=== PATIENT | male | born 1965 | race Caucasian/White ===

== ENCOUNTER → 2020-10-06 | Outpatient (CLI) | payer BC ==
[~2020-10-06] MED LIST: AMLO5TAB2 GT; ENAL10TA PO; MELO-195 PO
== END ==
LOC: CARD 14:00
PROVIDERS: ATTEND Internal Medicine Cardiovascular Disease
DX: I51.7 Cardiomegaly (principal)
CPT/HCPCS: 93306

== ENCOUNTER 2020-11-24 05:37 | Outpatient (CLI) | payer BC ==
[~2020-11-24] VITALS: Ht 175.3 cm; Wt 88.4 kg
[2020-11-24] MEDS ORDERED: AMLO-250 PO (09:37)
== END 2020-11-24 10:10 | disposition home or self-care (01) ==
LOC: PREOP 05:37
PROVIDERS: ATTEND Surgery
DX: Z01.818 Encounter for other preprocedural examination (principal)

== ENCOUNTER 2020-12-01 08:29 | Day surgery (SDC) | payer BC ==
[~2020-12-01] VITALS: Ht 175.3 cm; Wt 88.4 kg
[2020-12-01] VITALS (9 sets, daily range): BP systolic 105–128; BP diastolic 57–68
--- NOTE | 2020-12-01 06:20 | HISTORY AND PHYSICAL ---
DATE OF SERVICE: PROCEDURE DATE: 12/01/2020 ATTENDING PRIMARY CARE PHYSICIAN: Dr. Amandeep Malave HISTORY OF PRESENT ILLNESS: The patient is a 55-year-old male who is known to us. He was seen in 09/2016 for an umbilical hernia; however, this was asymptomatic at that time. He reports that over the past month, he has noticed that this has become larger in size and started to cause him some more discomfort. He reports that he has also noticed some bulging just superior to the umbilicus. He also reports that he is in need of a screening colonoscopy. He reports that he does have a family history of colon cancer with his father having the disease and his last colonoscopy was 5 years ago, which he reports was normal. Since that time, he denies any diarrhea or constipation as well as no red blood in his stool. PAST MEDICAL HISTORY: Hypertension, rheumatoid arthritis. PAST SURGICAL HISTORY: Left ACL repair in 1997, open appendectomy in 1995, left carpal tunnel release, 2016. ALLERGIES: No known drug allergies. MEDICATIONS: Amlodipine 5 mg daily, enalapril 10 mg daily. SOCIAL HISTORY: Negative for tobacco smoke, social for alcohol. FAMILY HISTORY: Father, diabetes, colon cancer, hypertension, stroke, myocardial infarction. VITAL SIGNS: Blood pressure is 129/86. Current weight is 194.9 pounds at 5 feet 9 inches. REVIEW OF SYSTEMS: This is a well-nourished male in no acute distress. He is not experiencing any shortness of breath or difficulty breathing. No chest pain, palpitations or diaphoresis. No nausea or vomiting. He does report some abdominal pain at the umbilical region. No diarrhea or constipation. No red blood per rectum. No dark tarry stools. No fever or chills. No recent inadvertent weight loss. All other review of systems negative. PHYSICAL EXAMINATION: CHEST: Clear. Good breath sounds bilaterally. HEART: Regular, no murmurs. EXTREMITIES: No lower extremity edema. Negative Homans sign. HEENT: No scleral icterus. NECK: No cervical lymphadenopathy. ABDOMEN: Soft, nondistended. There does appear to be a ventral abdominal hernia just superior to the umbilicus as well as an umbilical hernia and these are reducible; however, tender to palpation. No palpable masses. No organomegaly. SKIN: Warm, dry and pink. NEUROLOGIC: Awake, alert and oriented x3. ASSESSMENT AND PLAN: A 55-year-old male with a family history of colon cancer, who is in need of a screening colonoscopy, who also has an umbilical hernia as well as what appears to be a ventral abdominal hernia. At this time, we will proceed with scheduling him for a screening colonoscopy and umbilical and ventral abdominal incisional hernia repair with mesh. The risks and benefits of the procedure as well as the procedure and home care instructions were explained to the patient. The patient verbalized understanding of instructions and agrees to proceed as planned. Job ID: [id number] DocumentID: [id number] Dictated Date: 11/29/2020 14:44:13 Workgroup Leader Date: 11/29/2020 15:03:08 Dictated By: ANNA DACOSTA APRN
[~2020-12-01 08:29] MED LIST changes: +AMLO-250 PO
--- NOTE | 2020-12-01 08:51 | Progress Note-Pre Operative ---
Pre-Operative Progress Note H&P Reviewed The H&P was reviewed, patient examined and no changes noted. Date Seen by Provider: Dec 01, 2020 Time Seen by Provider: 08:50 Date H&P Reviewed: Dec 01, 2020 Time H&P Reviewed: 08:45 Pre-Operative Diagnosis: Umbilical and ventral abdominal hernia, Screening colonoscopy ANNA DACOSTA APRN Dec 01, 2020 08:50
[2020-12-01] MEDS ORDERED: HYDR-3817 PO (08:52)
--- NOTE | 2020-12-01 08:54 | Discharge Inst-Surgical ---
D/C Lap Instructions-KIDO Reconcile Patient Problems Problems Reviewed?: Yes New, Converted, or Re-Newed RX: RX on Chart Follow Up Appt in 2 weeks Activity as tolerated No driving for 24 hours No driving while on pain medications Incentive Spirometry use every 2 hours while awake Regular Diet High Fiber Diet 25g or more per day Drink 64 fluid oz or more of fluids per day. Symptoms to Report: Fever over 101 degree F, Nausea/Vomiting Infection Signs and Symptoms to report: Increased redness, Foul odor of wound, Increased drainage Bathing instructions: May shower Operative Area Clean/Dry; Keep incision clean/dry ANNA DACOSTA POLICE CADET Dec 01, 2020 08:54
[2020-12-01] MEDS ORDERED: ONDANSETRON 4 MG/2 ML (SDV) Z0FRAN IVP PRN (09:00)
[2020-12-01] MEDS ORDERED: ceFAZolin 2 GM IV Premixed 50 ML IV ONE (09:00)
[2020-12-01] MEDS ORDERED: HYDROcodone/APAP 5 MG/325 MG (LORTAB) TAB PO ONE (09:00)
[2020-12-01] MEDS ORDERED: ACETAMINOPHEN 325 MG TABLET PO PRN (09:00)
[2020-12-01] MEDS ORDERED: morphine INJ 10 MG/ML 1ML (SYR OR VIAL) IVP PRN (09:00)
[2020-12-01] MEDS: LACTATED RINGERS 1,000 ML IV PRN ×3 (09:14→11:35)
[2020-12-01] MEDS ORDERED: LIDOCAINE PF 2% 5 ML (XYLOCAINE) VIAL ONE (09:34)
[2020-12-01] MEDS ORDERED: MIDAZOLAM 2 MG/2 ML (VERSED) VIAL ONE (09:34)
[2020-12-01] MEDS ORDERED: ONDANSETRON 4 MG/2 ML (SDV) Z0FRAN ONE ×2 (09:34→12:07)
[2020-12-01] MEDS ORDERED: fentaNYL INJ 100 MCG/2 ML AMP ONE (09:34)
[2020-12-01] MEDS ORDERED: ROCURONIUM 10 MG/ML 5 ML SYRINGE IV ONE (09:36)
[2020-12-01] MEDS ORDERED: LIDOCAINE/EPI 1%-1:200,000 (XYLOCAINE) 30 ML VIAL ONE (09:47)
[2020-12-01] MEDS ORDERED: GLYCOPYRROLATE 0.2 MG/ML (ROBINUL) 2 ML VIAL ONE (11:18)
[2020-12-01] MEDS ORDERED: proPOfol 200 MG/20 ML (DIPRIVAN) VIAL IV ONE (11:18)
[2020-12-01] MEDS ORDERED: NEOSTIGMINE 3 MG/3 ML VIAL ONE (11:18)
--- NOTE | 2020-12-01 11:19 | Progress Note-Post Operative ---
Post-Operative Progess Note Surgeon (s)/Construction Carpenter (s) Surgeon Dr. Cesario Wood M.D. Construction Carpenter: Dewayne Dacosta TREE DRILLER Pre-Operative Diagnosis Umbilical and ventral abdominal hernia, Screening colonoscopy Post-Operative Diagnosis Umbilical hernia, ventral abdominal hernia, mild chronic stage II internal and external hemorrhoids, moderate sigmoid diverticulosis Procedure & Operative Findings Date of Procedure 12/01/20 Procedure Performed/Findings Open umbilical hernia with mesh, primary repair of ventral abdominal hernia, and colonoscopy Anesthesia Type GET Estimated Blood Loss Estimated blood loss (mL): Minimal Specimens/Packing Specimens Removed 1) Hernia sac DEWAYNE DACOSTA TREE DRILLER Dec 01, 2020 11:19
[2020-12-01] MEDS ORDERED: SEVOFLURANE (ULTANE) 15 ML INHAL SOLN ONE (11:34)
[2020-12-01] MEDS ORDERED: HYDROcodone/APAP 5 MG/325 MG (LORTAB) TAB ONE ×2 (12:30→12:34)
--- NOTE | 2020-12-01 13:13 | Anesthesia-General Post-Op ---
General Patient Condition Mental Status/LOC: Same as Preop Cardiovascular: Satisfactory Nausea/Vomiting: Absent Respiratory: Satisfactory Pain: Controlled Complications: Absent Post Op Complications Complications None Follow Up Care/Instructions Patient Instructions None needed. Anesthesia/Patient Condition Patient Condition Patient is doing well, no complaints, stable vital signs, no apparent adverse anesthesia problems. No complications reported per nursing. JEWEL JOHNSON CRNA Dec 01, 2020 13:13
--- NOTE | 2020-12-01 15:37 | OPERATIVE REPORT ---
DATE OF SERVICE: 12/01/2020 ATTENDING PRIMARY CARE PHYSICIAN: Amandeep Malave MD. PREOPERATIVE DIAGNOSES: Umbilical hernia, ventral abdominal hernia and screening colonoscopy. POSTOPERATIVE DIAGNOSES: Umbilical hernia, ventral abdominal hernia 2 cm superior to the umbilical hernia, chronic stage II external and internal hemorrhoids, and moderate sigmoid diverticulosis. PROCEDURES PERFORMED: Open umbilical hernia repair with mesh and primary repair of ventral abdominal hernia, and colonoscopy. SURGEON: Marline Wood MD. RIPSHEAR OPERATOR: Dewayne Barrett APRN. ANESTHESIA: General endotracheal. ESTIMATED BLOOD LOSS: Minimal. FINDINGS: Umbilical hernia, ventral abdominal hernia 2 cm superior to the umbilical hernia, chronic stage II external and internal hemorrhoids, and moderate sigmoid diverticulosis. DISPOSITION: The patient tolerated the procedure well. INDICATIONS FOR PROCEDURE: The patient is a 55-year-old male known to us. He has a known history of an umbilical hernia; however, was asymptomatic at that time. He states that, over time, this has become larger and has caused discomfort and pain. He was examined in the office and found to have a reducible umbilical hernia, which was tender to palpation; however, there was also another outpouching superior to this consistent with a ventral abdominal hernia. He is also in need of a screening colonoscopy. He does have a family history of colon cancer with his father having the disease. DESCRIPTION OF PROCEDURE: The patient was brought to the operating room and laid supine on the table. After adequate IV pain and sedative medications and general endotracheal intubation, the abdomen was prepped and draped in a standard surgical fashion. A 0.5% Marcaine with epinephrine was used to anesthetize the overlying skin in the supraumbilical rim and a crescent shaped skin incision was made using a 15 blade. The subcutaneous tissue was then dissected using electrocautery. The umbilical hernia was identified and we continued to dissect around the fascial base with a defect approximately 1.5 cm in size. The hernia sac was then opened using a cautery and only a preperitoneal fat within the hernia sac, which was fully excised using electrocautery with visualization of good hemostasis. We then palpated superiorly, where a small ventral hernia was identified. This was then completely dissected out in a similar fashion. The hernia sac was opened using electrocautery with only preperitoneal fat within the hernia sac. This was a small defect approximately 1 cm in size. We then proceeded with repair of the umbilical hernia using a 6.4 round coated polypropylene mesh and this was sutured in a concentric manner using transfascial sutures using 0 Prolene interrupted sutures. The ventral hernia, which was small, was closed primarily in a transverse manner using multiple interrupted 0 Prolene sutures. Good hemostasis was observed. The subcutaneous tissue was then reapproximated using 3-0 Vicryl interrupted sutures. Skin was closed using a 4-0 Monocryl running subcuticular suture. The umbilicus as well as ventral hernia region was then covered with tonsil sponges followed by 4 x 4 gauze followed by a large Op-Site. Abdominal binder was then placed. The patient was then placed in frog legged position and a digital rectal examination was performed. Chronic stage II external and internal hemorrhoids were identified, which were not actively edematous nor inflamed and no bleeding. Normal sphincter tone was felt and there were no palpable masses. Prostate gland was palpable and appeared normal. The endoscope was then intubated and the anus and rectum gently insufflated. The endoscope was then advanced through the valves of Alvarado of the rectum with no polyps or any neoplasms identified. Through the sigmoid colon, a moderate sigmoid diverticulosis was identified. There were no mucosal inflammatory changes to indicate any active diverticulitis. The endoscope was then advanced and remainder of the descending, transverse and ascending colon to the cecum. These segments were normal. There were no polyps or any neoplasms identified. The endoscope was then slowly withdrawn while taking a second look and suctioning of residual air with no additional findings. The patient tolerated the procedure well. We will start IV normal pain medication as well as a clear liquid diet. Once he is tolerating clears, has good pain control with oral pain medications, and is ambulating well, we will discharge him home. He will be instructed to do no heavy lifting or exertion, especially for the first two weeks and slowly incorporate more activity. We will also want him to wear an abdominal binder for the next two weeks. We will also recommend a high-fiber diet with fiber supplementation, which should equal or exceed 30 grams daily as well as significant amounts of water to promote soft stools on a daily basis. He does not need another colonoscopy for another five years. Job ID: [id number] DocumentID: [id number] Dictated Date: 12/01/2020 11:32:31 Fingerprint Clerk Date: 12/01/2020 15:36:56 Dictated By: MARLINE WOOD MD
== END 2020-12-01 13:15 | disposition home or self-care (01) ==
LOC: SDC 08:29
PROVIDERS: ATTEND Surgery
DX: Z12.11 Encounter for screening for malignant neoplasm of colon (principal); K42.9 Umbilical hernia without obstruction or gangrene; K43.9 Ventral hernia without obstruction or gangrene; K64.1 Second degree hemorrhoids; K57.30 Diverticulosis of large intestine without perforation or abscess without bleeding; I10 Essential (primary) hypertension; K21.9 Gastro-esophageal reflux disease without esophagitis; Z98.890 Other specified postprocedural states; Z79.899 Other long term (current) drug therapy; Z90.89 Acquired absence of other organs; Z80.0 Family history of malignant neoplasm of digestive organs
CPT/HCPCS: 45378; 49560; 49585; 87081; C1781

== ENCOUNTER 2021-01-23 16:16 | Observation (INO) | payer BC ==
[~2021-01-23] VITALS: Ht 172.7 cm; Wt 91.0 kg
[~2021-01-23 16:16] MED LIST changes: +HYDR-3817 PO
[2021-01-23] MEDS ORDERED: HYDROmorphone 2 MG/ML VIAL (DILAUDID) IV ONE (16:30)
--- NOTE | 2021-01-23 16:34 | ED Lower Extremity ---
General Stated Complaint: TREE TRUNK FELL/HIT L ANKLE Source: patient Exam Limitations: no limitations (YULI NELSON) History of Present Illness Date Seen by Provider: Jan 23, 2021 Time Seen by Provider: 16:31 Initial Comments Patient is a 55-year-old male who presents ED with left ankle pain. Patient states 30 minutes ago he was cutting down a tree when the trunk kicked back hitting his left ankle. Obvious bone deformity noted on arrival. +2 dorsalis pedis. Limited range of motion of the digits. Patient in significant pain on arrival. Last time he ate was apple this morning. Denies hitting his head, back, chest or abdomen. (YULI NELSON) Allergies and Home Medications Allergies Coded Allergies: No Known Drug Allergies (Unverified , 12/15/12) Patient Home Medication List Home Medication List Reviewed: Yes (YULI NELSON) Amlodipine Besylate (Amlodipine Besylate) 5 Mg Tablet, 5 MG PO DAILY, (Reported) Entered as Reported by: CHARLY ABDULLAHI on 11/24/20 0937 Last Action: Reviewed Enalapril Maleate (Enalapril Maleate) 10 Mg Tablet, 10 MG PO DAILY, (Reported) Entered as Reported by: SYMONE AJ on 01/24/21 1345 Last Action: Reviewed Discontinued Medications Enalapril Maleate (Enalapril Maleate) 10 Mg Tablet, 10 MG PO DAILY, (Reported) Discontinued Reason: No Longer Taking Entered as Reported by: TAMMY NICHOLE on 12/15/12 0841 Last Action: Discontinued Hydrocodone/Acetaminophen (Hydrocodone-Acetamin 7.5-325) 1 Each Tablet, 1 EACH PO Q4H PRN for PAIN-BREAKTHROUGH Discontinued Reason: No Longer Taking Prescribed by: ANNA DACOSTA on 12/01/20 0852 Last Action: Discontinued Review of Systems Constitutional: No chills, No diaphoresis, No dizziness, No fever EENTM: No hearing loss, No ear pain, No blurred vision, No eye pain Respiratory: No cough, No dyspnea on exertion, No hemoptysis Cardiovascular: No edema Gastrointestinal: No abdominal pain, No constipation, No diarrhea Musculoskeletal: No back pain; joint pain, joint swelling, other (deformity of left ankle ) Skin: No change in color, No change in hair/nails Psychiatric/Neurological: Denies Anxiety, Denies Depressed (YULI NELSON) All Other Systems Reviewed Negative Unless Noted: Yes (YULI NELSON) Past Assibbj-Bplxah-Usgpjz Hx Immunizations Up To Date First/Initial COVID19 Vaccinat: MARCH 2020 Second COVID19 Vaccination Aleksey: APRIL 2020 (YULI NELSON) Seasonal Allergies Seasonal Allergies: No (YULI NELSON) Past Medical History Surgeries: Yes Respiratory: No Cardiac: No Neurological: No Genitourinary: No Gastrointestinal: No Musculoskeletal: No Endocrine: No HEENT: No Cancer: No Psychosocial: Yes Sleep Difficulties Integumentary: No Blood Disorders: No (YULI NELSON) Physical Exam Vital Signs Vital Signs - First Documented 01/23/21 01/23/21 16:21 17:04 Pulse 78 Resp 18 B/P (MAP) 122/77 (92) Pulse Ox 98 O2 Delivery Room Air O2 Flow Rate 2.00 (SAM MERLOS MD) Vital Signs Capillary Refill : (YULI NELSON) Height, Weight, BMI Height: '" Weight: 180lbs. oz. 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 Re-examination Time: 17:24 (YULI NELSON) Splinting and Joint Reduction : Location: left ankle Pre-Proc Neuro Vasc Exam: normal Post-Proc Neuro Vasc Exam: normal Reduction Attempts: 1 Pre-Procedure NV Exam: Yes post joint reduction film: joint reduced Progress Improvement of alignment of the left ankle. Fractures noted. Maikel wrap: Yes Hand-Made Type: orthoglass Splint Application: Long Leg (YULI NELSON) Progress/Results/Core Measures Results/Orders Lab Results Laboratory Tests Test 01/23/21 16:25 Range/Units White Blood Count 11.7 H 4.3-11.0 10^3/uL Red Blood Count 5.02 4.30-5.52 10^6/uL Hemoglobin 15.1 13.3-17.7 g/dL Hematocrit 44 40-54 % Mean Corpuscular Volume 88 80-99 fL Mean Corpuscular Hemoglobin 30 25-34 pg Mean Corpuscular Hemoglobin Concent 34 32-36 g/dL Red Cell Distribution Width 13.0 10.0-14.5 % Platelet Count 277 130-400 10^3/uL Mean Platelet Volume 9.9 9.0-12.2 fL Immature Granulocyte % (Auto) 0 % Neutrophils (%) (Auto) 74 42-75 % Lymphocytes (%) (Auto) 14 12-44 % Monocytes (%) (Auto) 11 0-12 % Eosinophils (%) (Auto) 1 0-10 % Basophils (%) (Auto) 0 0-10 % Neutrophils # (Auto) 8.6 H 1.8-7.8 10^3/uL Lymphocytes # (Auto) 1.6 1.0-4.0 10^3/uL Monocytes # (Auto) 1.3 H 0.0-1.0 10^3/uL Eosinophils # (Auto) 0.1 0.0-0.3 10^3/uL Basophils # (Auto) 0.1 0.0-0.1 10^3/uL Immature Granulocyte # (Auto) 0.1 0.0-0.1 10^3/uL Sodium Level 139 135-145 MMOL/L Potassium Level 3.8 3.6-5.0 MMOL/L Chloride Level 104 98-107 MMOL/L Carbon Dioxide Level 23 21-32 MMOL/L Anion Gap 12 5-14 MMOL/L Blood Urea Nitrogen 17 7-18 MG/DL Creatinine 1.08 0.60-1.30 MG/DL Estimat Glomerular Filtration Rate 71 BUN/Creatinine Ratio 16 Glucose Level 95 70-105 MG/DL Calcium Level 9.8 8.5-10.1 MG/DL (SAM MERLOS MD) My Orders Orders - SAM MERLOS MD Propofol Injection (Diprivan Injection) (01/23/21 17:15) Ankle, Left, 2 Views (01/23/21 17:24) (SAM MERLOS MD) Vital Signs/I&O 01/23/21 01/23/21 01/23/21 01/23/21 16:21 17:00 17:04 17:17 Pulse 78 75 Resp 18 18 B/P (MAP) 122/77 (92) 109/72 Pulse Ox 98 94 O2 Delivery Room Air Room Air Nasal Cannula Nasal Cannula O2 Flow Rate 2.00 2.00 01/23/21 01/23/21 01/23/21 17:21 17:39 18:12 Pulse 81 84 59 59 Resp 35 18 18 16 B/P (MAP) 95/75 111/72 121/76 Pulse Ox 92 99 98 O2 Delivery Nasal Cannula Nasal Cannula Room Air O2 Flow Rate 2.00 (SAM MERLOS MD) Progress Progress Note : Time: 17:00 Progress Note I was present for the procedural sedation and closed reduction of the left fracture disclocation of the left ankle. Mallampati 2-3. Initial VSS. I provided sedation and assisted with monitoring the patient's respiratory status. Total length of sedation time about 15min. 160mg total of propofol used. Patient did drop O2 sats to to about 88-89%, 2-5L O2 supplemented. Respiratory effort remained good. Patient tolerated the procedure well. (SAM MERLOS MD) Departure Communication (Admissions) Time/Spoke to Admitting Phy: 18:23 Successful reduction of left ankle here in the ED. Patient tolerated procedure well. Improvement of alignment. Neurovascular intact. Patient was placed in a splint posterior short leg with reverse sugar tong. Patient was discussed with orthopedic Dr. Mosquera who recommends surgery in the morning and will accept admit at this time. Patient denies of any other injuries. Patient was discussed with Dr. Mosquera who accepts admit for surgery in the morning at 8:30 AM. Patient will be n.p.o. after midnight. IV morphine as needed. Lab work, EKG and chest x-ray was ordered. Patient is a healthy individual. Patient left leg neurovascular intact post splint. No evidence of compartment syndrome. Pain controlled. (YULI NELSON) Impression Primary Impression: Ankle fracture Disposition: ADMITTED INPATIENT Condition: Stable Admissions Decision to Admit Reason: Admit from ER (General) Decision to Admit/Date: Jan 23, 2021 Time/Decision to Admit Time: 18:22 (YULI NELSON) Departure-Patient Inst. Referrals: FILOMENA AMAYA DO (PCP/Family) Primary Care Physician YULI NELSON Jan 23, 2021 16:34 SAM MERLOS MD Jan 24, 2021 06:23
--- NOTE | 2021-01-23 17:04 | Diagnostic Imaging Report ---
EXAMINATION: Left ankle radiographs, 2 views. COMPARISON: None. HISTORY: 55-year-old male, left ankle pain. Injury. FINDINGS: There is a displaced fracture extending through the base of the medial malleolus. The fracture fragment is displaced laterally by approximately 1.3 cm. There is a comminuted displaced distal fibular fracture above the level of the tibial plafond. The distal tibia is medially subluxed/dislocated relative to the talus. There is abnormal angulation at the tibiotalar joint. IMPRESSION: 1. Displaced fracture through the base of the medial malleolus. 2. Comminuted displaced distal fibular fracture above the level of the tibial plafond. 3. The distal tibia is medially subluxed/dislocated relative to the talus with abnormal angulation of the tibiotalar joint. Dictated by: Dictated on workstation # [id number]
[2021-01-23] MEDS ORDERED: proPOfol 200 MG/20 ML (DIPRIVAN) VIAL IV ONE ×2 (17:09→17:15)
[2021-01-23] MEDS ORDERED: NS IV 1000 ML 1,000 ML ONE (17:15)
--- NOTE | 2021-01-23 17:47 | Diagnostic Imaging Report ---
INDICATION: Left ankle injury. AP and lateral views of the left ankle obtained at 5:32 p.m. and compared to same day at 4:53 p.m. FINDINGS: There is improved alignment compared to the prior study. Fracture of the medial malleolus is again noted with improved alignment compared to the prior study. Distal fibular oblique fracture is also improved in alignment compared to the prior study. The dislocation of the ankle joint seen previously appears to have been reduced. IMPRESSION: Improved alignment of distal tibial and fibular fractures with reduction of previous dislocation. Dictated by: Dictated on workstation # [id number]
[2021-01-23 18:27] LABS: POTASSIUM 3.8 MMOL/L (3.6-5.0)
[2021-01-23 18:28] LABS: CALCIUM 9.8 MG/DL (8.5-10.1)
[2021-01-23 18:32] LABS: CREATININE SERUM 1.08 MG/DL (0.60-1.30)
[2021-01-23 18:36] LABS: BASOPHILS # (AUTO) 0.1 10^3/uL (0.0-0.1); BASOPHILS % (AUTO) 0 % (0-10); EOSINOPHILS # (AUTO) 0.1 10^3/uL (0.0-0.3); EOSINOPHILS % (AUTO) 1 % (0-10); HEMATOCRIT 44 % (40-54); HEMOGLOBIN 15.1 g/dL (13.3-17.7); LYMPHOCYTES # (AUTO) 1.6 10^3/uL (1.0-4.0); LYMPHOCYTES % (AUTO) 14 % (12-44); MEAN CORPUSCULAR HEMOGLOBIN 30 pg (25-34); MEAN CORPUSCULAR HGB CONC 34 g/dL (32-36); MEAN CORPUSCULAR VOLUME 88 fL (80-99); MEAN PLATELET VOLUME 9.9 fL (9.0-12.2); MONOCYTES # (AUTO) 1.3 10^3/uL (0.0-1.0); MONOCYTES % (AUTO) 11 % (0-12); NEUTROPHILS # (AUTO) 8.6 10^3/uL (1.8-7.8); NEUTROPHILS % (AUTO) 74 % (42-75); PLATELET COUNT 277 10^3/uL (130-400); WHITE BLOOD COUNT 11.7 10^3/uL (4.3-11.0)
--- NOTE | 2021-01-23 18:39 | Diagnostic Imaging Report ---
INDICATION: 55-year-old male presents with cough, history of left broken ankle from fall. COMPARISONS: None FINDINGS: PA and lateral films of the chest show the cardiac contour to be normal. There is slight prominence of the central lung ward. There is some minimal basilar atelectatic infiltrates but no consolidations. There is no effusion or pneumothorax. Soft tissues and bony thorax are normal. IMPRESSION: Some central reactive airway changes such as mild bronchitis with some minimal perihilar and infrahilar infiltrates probably atelectatic. No significant consolidations seen. Nodules projected over both lower chest are felt to be nipples. If warranted, nipple markers can be placed with reimaging. The thoracic vertebral bodies appear well aligned and vertebral body heights appear well-maintained. Bony structures including both sets of ribs are grossly unremarkable. Dictated by: Dictated on workstation # [id number]
[2021-01-23 20:02] VITALS: BP 121/77
[2021-01-23] MEDS: fentaNYL INJ 100 MCG/2 ML AMP IV PRN (22:35)
[2021-01-23] MEDS ORDERED: CATHETER FLUSH 10 ML SYR IV PRN (22:45)
[2021-01-24] VITALS (12 sets, daily range): BP systolic 95–122; BP diastolic 64–82
[2021-01-24] MEDS: fentaNYL INJ 100 MCG/2 ML AMP IV PRN (05:27)
[2021-01-24] MEDS: CATHETER FLUSH 10 ML SYR IV SCH ×3 (06:15→22:01)
[2021-01-24] MEDS ORDERED: fentaNYL INJ 100 MCG/2 ML AMP ONE (07:03)
[2021-01-24] MEDS ORDERED: MIDAZOLAM 2 MG/2 ML (VERSED) VIAL ONE ×2 (07:03→09:38)
[2021-01-24] MEDS ORDERED: LIDOCAINE PF 2% 5 ML (XYLOCAINE) VIAL ONE (07:03)
[2021-01-24] MEDS ORDERED: proPOfol 200 MG/20 ML (DIPRIVAN) VIAL IV ONE (07:03)
[2021-01-24] MEDS ORDERED: ONDANSETRON 4 MG/2 ML (SDV) Z0FRAN ONE (07:03)
[2021-01-24] MEDS ORDERED: SEVOFLURANE (ULTANE) 15 ML INHAL SOLN ONE (07:03)
[2021-01-24] MEDS ORDERED: NEO/POLY/BAC (NEOSPORIN) OINT 15 GM TUBE ONE (07:12)
[2021-01-24] MEDS ORDERED: FLU QUADRIvalent (3YOA+) 60 mcg/0.5 ml 2021-22(AFLURIA) IM ONE (07:15)
[2021-01-24] MEDS: morphine INJ 4 MG/ML 1 ML (VIAL/SYRINGE) IVP PRN ×8 (07:27→23:51)
--- NOTE | 2021-01-24 07:51 | History & Physical Orthopedic ---
History and Physical Subjective Date of Exam 01/24/21 Chief Complaint Fracture left ankle HPI/Events since last exam Mr Robin Is a 55-year-old white male who injured his left ankle when he was cutting down a tree. The trunk kicked back and hit him in the ankle. He denies any other injury. He was seen in the emergency room was evaluated and x-rayed noted to have a bimalleolar fracture of his left ankle. This was reduced and splinted. He was admitted for surgical treatment of the left ankle. Denies any previous injury to the left ankle. Medical, Surgical History Surgeryventral hernia, appendectomy, ACL Illnesseshypertension Allergiesnone Social History He works at [employer] Family History Reviewed and no additions or changes Review of Systems History of hypertension. Recent surgery for ventral hernia Allergies: Coded Allergies: No Known Drug Allergies (Unverified , 12/15/12) Home Meds Active Scripts Hydrocodone/Acetaminophen (Hydrocodone-Acetamin 7.5-325) 1 Each Tablet, 1 EACH PO Q4H PRN for PAIN-BREAKTHROUGH, #35 TAB Prov:ANNA DACOSTA [employer] RESEARCH SCIENTIST 12/01/20 Reported Medications Amlodipine Besylate (Amlodipine Besylate) 5 Mg Tablet, 5 MG PO DAILY, TAB 11/24/20 Enalapril Maleate (Enalapril Maleate) 10 Mg Tablet, 10 MG PO DAILY 12/15/12 Home Medication List Reviewed: Yes Objective Exam Constitutional: [55-year-old white male in no acute distress. He is alert and oriented] HEENT: [Within normal limits] Neck: [Minimal pain with palpation. Full range of motion] Cardiovascular: [Regular rhythm without murmur] Respiratory: [Lungs clear to auscultation] Gastrointestinal: [Within normal limits] Genitourinary: [] Skin: [Within normal limit] Back/Spine: Mild pain with palpation. Previous history of chronic back pain] Extremities: [Upper extremitiesfull range of motion. No deformity. Normal sensation with good cap refill. Equal pulses. Lower extremitiesright lower extremity no hip, knee or ankle pain. Left lower extremity no hip or knee pain. Left ankle is in a splint. Normal sensation of the foot and toes with good cap refill. Good pulses on the right] Neurologic: [Intact] Psychiatric: [] Hematologic/lymphatic/immunologic: [] Vital Signs Vital Signs Date Time Temp Pulse Resp B/P (MAP) Pulse Ox O2 Delivery O2 Flow Rate FiO2 01/24/21 04:58 37.2 67 18 122/82 (95) 97 Room Air 01/24/21 00:00 37.0 60 16 117/66 (83) 98 Room Air 01/23/21 21:00 Room Air 01/23/21 20:02 37.0 64 18 121/77 (92) 98 Room Air 01/23/21 18:50 67 18 125/77 99 Room Air 01/23/21 18:12 59 18 121/76 98 Room Air 59 01/23/21 17:39 84 18 111/72 99 Nasal Cannula 01/23/21 17:21 81 35 95/75 92 Nasal Cannula 2.00 16 01/23/21 17:17 Nasal Cannula 2.00 01/23/21 17:04 Nasal Cannula 2.00 01/23/21 17:00 75 18 109/72 94 Room Air 01/23/21 16:21 78 18 122/77 (92) 98 Room Air I & O 01/24/21 07:00 Intake Total 200 ml Balance 200 ml Lab Results Laboratory Tests 01/23/21 16:25: White Blood Count 11.7H, Red Blood Count 5.02, Hemoglobin 15.1, Hematocrit 44, Mean Corpuscular Volume 88, Mean Corpuscular Hemoglobin 30, Mean Corpuscular Hemoglobin Concent 34, Red Cell Distribution Width 13.0, Platelet Count 277, Mean Platelet Volume 9.9, Immature Granulocyte % (Auto) 0, Neutrophils (%) (Auto) 74, Lymphocytes (%) (Auto) 14, Monocytes (%) (Auto) 11, Eosinophils (%) (Auto) 1, Basophils (%) (Auto) 0, Neutrophils # (Auto) 8.6H, Lymphocytes # (Auto) 1.6, Monocytes # (Auto) 1.3H, Eosinophils # (Auto) 0.1, Basophils # (Auto) 0.1, Immature Granulocyte # (Auto) 0.1, Sodium Level 139, Potassium Level 3.8, Chloride Level 104, Carbon Dioxide Level 23, Anion Gap 12, Blood Urea Nitrogen 17, Creatinine 1.08, Estimat Glomerular Filtration Rate 71, BUN/Creatinine Ratio 16, Glucose Level 95, Calcium Level 9.8 Imaging X-rays were reviewed which shows a fracture of the medial and lateral malleolus with lateral displacement of the talus. Postreduction shows significant improvement in position Assessment and Plan Assessment Isolated left ankle fracture Problem List Left ankle fracture Hypertension Plan Treatment options were discussed with the patient and his . I discussed non surgical treatment which which I do not think is a very good option. Surgical treatment includes open reduction internal fixation of the bimalleolar fracture with syndesmotic screws. Patient would like to proceed with surgery. He is scheduled for surgery this morning at 830. He is n.p.o. will use Ancef pre and postop Final Diagonsis Bimalleolar fracture left ankle Level of the visit: Level 3 FERCHO ZELAYA MD Jan 24, 2021 07:51
[2021-01-24] MEDS: LACTATED RINGERS 1,000 ML IV PRN ×2 (08:22→09:01)
[2021-01-24] MEDS ORDERED: BUPIVACAINE 0.25% 30 ML (SENSORCAINE) VIAL ONE (08:32)
[2021-01-24] MEDS ORDERED: LIDOCAINE/EPI 1%-1:100,000 (XYLOCAINE) 20ML ONE (08:32)
[2021-01-24] MEDS ORDERED: ceFAZolin INJECTION 2,000 MG ONE (08:42)
[2021-01-24] MEDS ORDERED: BUPIVACAINE 0.5% 30 ML (SENSORCAINE) VIAL ONE (09:01)
[2021-01-24] MEDS ORDERED: PROPOFOL INJECTION 100 ML IV ONE (09:01)
[2021-01-24] MEDS ORDERED: ONDANSETRON 4 MG/2 ML (SDV) Z0FRAN IVP PRN (10:30)
[2021-01-24] MEDS ORDERED: HYDROmorphone 2 MG/ML VIAL (DILAUDID) IV ONE (10:30)
[2021-01-24] MEDS: LACTATED RINGERS 1,000 ML IV SCH ×2 (11:48→16:07)
--- NOTE | 2021-01-24 11:55 | Operative Report - Ortho ---
Operative Report Surgeon (s)/Medical Administrative Technician (s) Surgeon FERCHO ZELAYA MD Medical Administrative Technician n/a Pre-Operative Diagnosis Bimalleolar fracture left ankle with syndesmosis disruption Post-Operative Diagnosis same Operative Report Date of Procedure: Jan 24, 2021 Name of Procedure Performed: Open reduction internal fixation bimalleolar fracture left ankle with syndesmosis disruption Two 4.0 mm partially threaded cannulated screws 40 mm in lengthFor fixation of the medial malleolus 8 hole semitubular plate with 2 locking screws distally and 3 cortical screws proximally for the fibula fracture 2 syndesmotic screws through the plate, 60 and 55 mm Description & Findings The patient was taken the operating room in his hospital bed and placed on The OR table. A spinal was inserted by anesthesia. Patient was given 2 g Ancef IV. He was placed supine on the OR table and his splint was removed. A tourniquet was placed on the left thigh. No skin wounds were noted medial or lateral ankle. There is a little bit of bruising around the medial malleolus. Good pulses were noted. The ankle and lower leg were then prepped and draped in the usual sterile manner. The leg was exsanguinated with an Esmarch and the tourniquet was elevated to 250 mmHg. An incision was made laterally from the tip of the distal fibula proximally. This was taken down through subtenons tissue. Bleeders were cauterized. The soft tissue was elevated off the distal fibula and the fascia was split proximally over the fibula. The soft tissue was retracted and the fracture was noted. The fracture was irrigated. There is noted to be an intact cortex anteriorly but the posterior cortex at the fracture site was markedly comminuted. The fracture was able to be reduced and held with a reduction clamp. An 8 hole semitubular plate was then fashioned to fit the fibula. This was inserted and a cortical screw was placed just proximal to the fracture site and a locking screw was placed through the distal to holes in the plate. Image was used to visualize the fracture which was anatomically reduced. At this point 2 additional screws were placed approximately both cortical. The remaining screw holes over the fracture and distal fibula were left open for syndesmotic screws. At this point a slightly curved incision was made over the medial malleolus. This was taken down through subtenons tissue. Bleeders were cauterized. The soft tissue was elevated off the fracture site and the fracture was irrigated. No comminution was noted. The medial malleolar fracture was reduced and held with a reduction clamp. Guidewires were placed through the tip of the medial malleolus and verified in good position using image. The cortex was overdrilled and then to 40 mm 4.0 partially-threaded cannulated screws were then placed over the guidewires fixing the medial malleolar fracture which was anatomically reduced. Image was again used to visualize the reduction and fixation. The mortise was symmetrical. The syndesmosis appeared normal but was not yet stressed. The fibula fracture again was anatomic with good position of the plate and screws laterally. At this point under image the syndesmosis was stressed and there was noted to be widening the syndesmosis grasping the fibula and plate and applying lateral pressure. This point it was felt that this fracture did require syndesmosis screws and a 60 mm syndesmotic screw was placed approximately 1 cm above the articular surface of the distal tibia. This was drilled and inserted and it was a fully threaded cortical screw. The neck screw hole proximally a 55 mm syndesmotic screw was inserted again drilling measuring and inserting the screw which was fully threaded cortical. This stabilized the syndesmosis which was again stressed. Again the mortise was symmetrical and well-maintained and fractures were anatomic. At this point the tourniquet was deflated after 52 minutes. Bleeders were cauterized. Wounds were irrigated. The lateral wound was closed with oh, 2-0 Vicryl and skin clips. The medial wound was closed with oh, 2-0 Vicryl and skin clips. The wounds were injected with the 50-50 mixture 1% Xylocaine with epinephrine and 0.25% Marcaine with epinephrine. The wounds are dressed with antibiotic ointment, Adaptic and 4 x 4's and wrapped with web roll. A posterior sugar tong splint were applied and Maikel wraps were then applied over the splints. The ankle was held at 90 degrees. Patient was then transferred to his hospital bed, then to recovery room in good condition, he nathaly erated the procedure well [id number] minutes at 250 mmHg Estimated blood loss75 mL Drainsnone Complicationsnone Blood replacementnone Anesthesia Type Spinal Estimated Blood Loss 75 mL Packing none. Specimen(s) collected/removed None FERCHO ZELAYA MD Jan 24, 2021 11:55
--- NOTE | 2021-01-24 12:21 | Anesthesia-Regional Post-Op ---
Regional Patient Condition Mental Status: Alert, Oriented x3 Circulation: Same as Pre-Op Headache: Absent Sensation: Full Recovery Motor Block: Absent Post Op Complications Complications None Follow Up Care/Instructions Patient Instructions None needed. Anesthesia/Patient Condition Patient is doing well, no complaints, stable vital signs, no apparent adverse anesthesia problems. No complications reported per nursing. [place] home [place] [facility] [place] Criteria: Yes JUAN MA CRNA Jan 24, 2021 12:21
--- NOTE | 2021-01-24 12:41 | Diagnostic Imaging Report ---
FLUOROSCOPY UP TO 1 HOUR INDICATION: Ankle fracture. ORIF COMPARISON: 01/23/2021 FINDINGS AND IMPRESSION: 6 spot fluoroscopic images are submitted and 55.7 seconds fluoroscopy time was utilized. Images show placement of medial malleolus screws along with a semitubular plate and screw in the distal fibula. Syndesmotic screws are noted. Please see operative report for complete details. Dictated by: Dictated on workstation # [id number]
[2021-01-24] MEDS: oxyCODONE/APAP 5/325MG (PERCOCET 5) TABLET PO PRN ×2 (12:54→17:10)
[2021-01-24] MEDS ORDERED: ENAL10TA16 PO (13:45)
--- NOTE | 2021-01-24 14:13 | Physical Therapy Evaluation ---
PT Evaluation-General Medical Diagnosis Admission Date Jan 23, 2021 at 18:44 Medical Diagnosis: left ankle fracture Onset Date: Jan 23, 2021 Therapy Diagnosis Therapy Diagnosis: debility Height/Weight Weight (Pounds): 180 Precautions Precautions/Isolations: Standard Precautions Weight Bear Status Right Lower Extremity: Right Full Weight Bearing Left Lower Extremity: Left Non Weight Bearing Referral Physician: Eveline Medical History Current History Chainsawing a tree when the trunk kicked back and landed on his left LE Reviewed History: Yes Social History Home: Single Level Current Living Status: Spouse Entry Into Home: Stairs With Railing PT Steps Into Home: 4 Prior Prior Level of Function SCALE: Activities may be completed with or without assistive devices. 3-Xxrmkbbtph-bxhilrz completes the activity by him/herself with no assistance from a helper. 5-Set-up or Clean-up Assistance-helper sets up or cleans up; patient completes activity. [place] assists only prior to or following the activity. 4-Supervision or Touching Assistance-helper provides verbal cues and/or touching/steadying and/or contact guard assistance as patient completes activity. Assistance may be provided throughout the activity or intermittently. 3-Partial/Moderate Assistance-helper does LESS THAN HALF the effort. [place] lifts, holds or supports trunk or limbs, but provides less than half the effort. 2-Substantial/Maximal Assistance-helper does MORE THAN HALF the effort. [place] lifts or holds trunk or limbs and provides more than half the effort. 8-Wscnhqimr-gqgxji does ALL the effort. Patient does none of the effort to complete the activity. Or, the assistance of 2 or more helpers is required for the patient to complete the activity. If activity was not attempted, code reason: 7-Patient Refused. 9-Not Applicable-not attempted and the patient did not perform the activity before the current illness, exacerbation or injury. 10-Not Attempted due to Environmental Limitations-(lack of equipment, weather restraints, etc.). 88-Not Attempted due to Medical Conditions or Safety Concerns. Bed Mobility: 6 Transfers (B,C,W/C): 6 Gait: 6 Stairs: 6 Indoor Mobility (Ambulation): Independent Stairs: Independent Prior Devices Use: None PT Evaluation-Current Subjective Patient agrees to PT. Pain Numeric Pain Scale: 8 Location: Left Location Body Site: Ankle Pain Description: Acute Comment: with meds issued Objective Patient Orientation: Normal For Age ROM/Strength ROM Lower Extremities bilateral LE WFL (left ankle soft cast) Strength Lower Extremities right LE 5/5/ left LE 5/5 (ankle NT) Integumentary/Posture Bowel Incontinence: No Bladder Incontinence: No Posture WFL Neuromuscular (Tone, Coordination, Reflexes) grossly intact Sensory Vision: Functional Hearing: Functional Sensation Right Lower Extremit: Intact Sensation Left Lower Extremity: Intact Transfers Roll Left to Right (QC): 6 Sit to Lying (QC): 6 Lying to Sitting/Side of Bed(Q: 6 Sit to Stand (QC): 4 Gait Does the Patient Walk?: Yes Mode of Locomotion: Walk Anticipated Mode of Locomotion: Walk Walk 10 feet (QC): 4 Walk 50 ft with 2 Turns(QC): 4 Walk 150 ft (QC): 4 Walking 10ft/uneven surface-QC: 4 Distance: 150' x 2 Gait Assistive Device: Crutches Comments/Gait Description CGA for safety with initially getting up and with first gait training/patient able to maintain NWB left LE without difficulty Stairs #of Steps: 4 1 Step (curb) (QC): 4 4 Steps (QC): 4 Walking Assistive Device: Crutches Balance Sitting Static: Normal Sitting Dynamic: Normal Standing Static: Good Standing Dynamic: Good Assessment/Needs 55 y.o. male, will be seen short term by skilled PT to address gait and stair training with use of axillary crutches, to ensure safe return to home with spouse at maximum LOF. Rehab Potential: Good PT Short Term Goals Short Term Goals Time Frame: Jan 25, 2021 Roll Left & Right: 6 Sit to lyin Lying to sitting on side of be: 6 Sit to stand: 6 Chair/akk-uw-ocwgl transfer: 6 Toilet transfer: 6 Walk 10 feet: 6 Walk 50 feet with two turns: 6 Walk 150 feet: 6 1 step (curb): 6 4 steps: 6 PT Plan Treatment/Plan Treatment Plan: Continue Plan of Care Treatment Plan: Education, Gait, Safety Treatment Duration: Jan 25, 2021 Frequency: 2 times per week Estimated Hrs Per Day: .25 hour per day Patient and/or Family Agrees t: Yes Discharge Recommendations Therapy Discharge Recommendati: Home & Family Time/GCodes Time In: 1313 Time Out: 1325 Total Billed Treatment Time: 12 Total Billed Treatment 1 visit EVMod 12 min ANSELMO ESPOSITO PT Jan 24, 2021 14:13
[2021-01-24] MEDS: ceFAZolin 2 GM IV Premixed 50 ML IV SCH ×2 (16:07→21:58)
[2021-01-24] MEDS: oxyCODONE/APAP 10/325MG (PERCOCET 10) TABLET PO PRN (20:36)
[2021-01-25] MEDS: morphine INJ 4 MG/ML 1 ML (VIAL/SYRINGE) IVP PRN ×3 (01:45→06:04)
[2021-01-25 04:10] VITALS: BP 118/72
[2021-01-25] MEDS: CATHETER FLUSH 10 ML SYR IV SCH (05:44)
[2021-01-25] MEDS: ceFAZolin 2 GM IV Premixed 50 ML IV SCH (05:56)
[2021-01-25] MEDS: oxyCODONE/APAP 10/325MG (PERCOCET 10) TABLET PO PRN (08:16)
[2021-01-25] MEDS: LACTATED RINGERS 1,000 ML IV SCH (08:17)
[2021-01-25 08:32] VITALS: BP 130/67
--- NOTE | 2021-01-25 08:40 | Progress Note - Ortho ---
Progress Note Subjective Date of Exam 01/25/21 Chief Complaint POD#1 Open reduction internal fixation bimalleolar fracture left ankle with syndesmosis stabilization HPI/Events since last exam Mr. Robin Is 1 day postop open reduction internal fixation bimalleolar fracture left ankle with syndesmosis stabilization. He is doing better today. We had to adjust his pain medication last night as the morphine and oxycodone did not control his pain well. This morning he is doing much better. He states he has not taken morphine since 4:00 this morning.He has been up ambulating to the bathroom has not had physical therapy yet this morning Review of Systems Reviewed and no additions or changes Allergies: Coded Allergies: No Known Drug Allergies (Unverified , 12/15/12) Home Meds Reported Medications Enalapril Maleate (Enalapril Maleate) 10 Mg Tablet, 10 MG PO DAILY, TAB 01/24/21 Amlodipine Besylate (Amlodipine Besylate) 5 Mg Tablet, 5 MG PO DAILY, TAB 11/24/20 Discontinued Reported Medications Enalapril Maleate (Enalapril Maleate) 10 Mg Tablet, 10 MG PO DAILY 12/15/12 Discontinued Scripts Hydrocodone/Acetaminophen (Hydrocodone-Acetamin 7.5-325) 1 Each Tablet, 1 EACH PO Q4H PRN for PAIN-BREAKTHROUGH, #35 TAB Prov:OLESYAANNA [employer] 12/01/20 Objective Exam Constitutional: [] HEENT: [] Neck: [] Cardiovascular: [] Respiratory: [] Gastrointestinal: [] Genitourinary: [] Skin: [] Back/Spine: [] Extremities: [Splint is intact. He can move his toes without pain. He states he has normal sensation to his toes. Good capillary refill.] Neurologic: [] Psychiatric: [] Hematologic/lymphatic/immunologic: [] Vital Signs Vital Signs Date Time Temp Pulse Resp B/P (MAP) Pulse Ox O2 Delivery O2 Flow Rate FiO2 01/25/21 08:32 37.6 79 18 130/67 (88) 93 Room Air 01/25/21 04:50 37.8 01/25/21 04:10 37.8 86 18 118/72 (87) 91 Room Air 01/25/21 02:15 37.8 01/25/21 00:20 37.8 01/24/21 23:47 37.8 85 18 113/66 (82) 92 Room Air 01/24/21 22:55 38.2 01/24/21 21:06 38.2 01/24/21 21:05 38.2 01/24/21 20:30 95 Room Air 0.00 01/24/21 20:00 38.2 81 18 121/73 (89) 95 Room Air 01/24/21 19:29 38.2 01/24/21 15:26 37.4 73 20 108/67 (81) 95 Room Air 01/24/21 11:20 36.7 55 16 112/72 (85) 97 Room Air 01/24/21 11:15 Room Air 01/24/21 11:10 36.7 16 106/65 (79) 98 Room Air 01/24/21 11:00 Room Air 01/24/21 11:00 20 102/65 (77) 98 Room Air 01/24/21 10:50 16 110/65 (80) 96 Room Air 01/24/21 10:45 Room Air 01/24/21 10:40 16 102/64 (77) 92 Room Air 01/24/21 10:30 16 95/74 (81) 98 Room Air 01/24/21 10:25 Room Air 01/24/21 10:25 36.2 16 105/67 (80) 97 Room Air I & O 01/25/21 07:00 Intake Total 3610 ml Output Total 1650 ml Balance 1960 ml Lab Results Microbiology 01/23/21 MRSA Screen - Final, Complete MRSA not isolated Assessment and Plan Assessment Doing well postop day #1 Problem List Unchanged Plan Patient would like to be discharged this morning. Physical therapy prior to discharge. Continue crutch ambulation nonweightbearing on the left. His i s working on getting a knee scooter. He has his prescription for oxycodone 5 mg/325 #40. He can take 1-2 every 4 hours as needed pain. Try to stick with one but used to as needed. Supplement with ibuprofen 6 to 800 mg 3 times a day or Tylenol. Aspirin 325 mg once a day for DVT prophylaxis. Elevation and ice. He has appointment for next Saturday 6. Call if he has any problems or questions prior to his appointment. He does have crutches. Final Diagonsis Displaced closed bimalleolar fracture left ankle with syndesmosis disruption Level of the visit: Level 3 FERCHO ZELAYA MD Jan 25, 2021 08:40
--- NOTE | 2021-01-25 08:45 | Discharge Summary ---
Discharge Summary Hospital Course Was the Problem List Reviewed?: Yes Hospital Course Date of Admission: Jan 23, 2021 at 18:44 Admission Diagnosis : Family Physician/Provider: Amandeep Malave DO Date of Discharge: 01/25/21 Discharge Diagnosis: [ ]Closed displaced bimalleolar fracture left ankle with syndesmosis disruption Hospital Course: [ ]Mr. Robin Was admitted through the ER with a displaced bimalleolar fracture left ankle. Date of admission was 01/23. He was taken to the operating room the following day and underwent open reduction internal fixation of his medial malleolus, distal fibula fracture and since he does most of his disruption with stabilization. Postop day #1 he was ambulating with crutches nonweightbearing. Pain was controlled with oxycodone. Physical therapy was working with him on crutch ambulation. He will be discharged to home. Follow-up in the office on Tuesday 01/30. A prescription for oxycodone 5/325 #40 was E scribed to his pharmacy in [place]. Continue elevation and ice. Call if he has any problems or questions. Labs and Pending Lab Test: Microbiology 01/23/21 MRSA Screen - Final, Complete MRSA not isolated Home Meds Active Reported Enalapril Maleate 10 Mg Tablet 10 Mg PO DAILY Amlodipine Besylate 5 Mg Tablet 5 Mg PO DAILY Assessment/Pt Instructions Doing well postop day #1. Instructions and discharge summary and progress note Discharge Physical Examination Vital Signs Vital Signs Date Time Temp Pulse Resp B/P (MAP) Pulse Ox O2 Delivery O2 Flow Rate FiO2 01/25/21 08:32 37.6 79 18 130/67 (88) 93 Room Air 01/24/21 20:30 0.00 Allergies: Coded Allergies: No Known Drug Allergies (Unverified , 12/15/12) Discharge Summary Date of Admission Jan 23, 2021 at 18:44 Date of Discharge FERCHO ZELAYA MD Jan 25, 2021 08:45
[2021-01-25] MEDS ORDERED: ENALAPRIL 10 MG (VASOTEC) TAB PO SCH (09:00)
[2021-01-25] MEDS ORDERED: amLODIPine 5 MG (NORVASC) TAB PO SCH (09:00)
[2021-01-25] MEDS ORDERED: ASPIRIN E.C. 325 MG (ECOTRIN) TABLET PO SCH (09:00)
--- NOTE | 2021-01-25 11:30 | Physical Therapy Daily Note ---
PT Daily Note-Current Subjective Pt using BR upon PT arrival w/ assistance from . Following BR pt agrees to PT. Pain Numeric Pain Scale: 5-Moderate Pain Location: Left Location Body Site: Ankle Mental Status Patient Orientation: Normal For Age Transfers SCALE: Activities may be completed with or without assistive devices. 6-Xnggihwbtr-xzfbwij completes the activity by him/herself with no assistance from a helper. 5-Set-up or Clean-up Assistance-helper sets up or cleans up; patient completes activity. [place] assists only prior to or following the activity. 4-Supervision or Touching Assistance-helper provides verbal cues and/or touching/steadying and/or contact guard assistance as patient completes activity. Assistance may be provided throughout the activity or intermittently. 3-Partial/Moderate Assistance-helper does LESS THAN HALF the effort. [place] lifts, holds or supports trunk or limbs, but provides less than half the effort. 2-Substantial/Maximal Assistance-helper does MORE THAN HALF the effort. [place] lifts or holds trunk or limbs and provides more than half the effort. 8-Kbumavgyi-fqieod does ALL the effort. Patient does none of the effort to complete the activity. Or, the assistance of 2 or more helpers is required for the patient to complete the activity. If activity was not attempted, code reason: 7-Patient Refused. 9-Not Applicable-not attempted and the patient did not perform the activity before the current illness, exacerbation or injury. 10-Not Attempted due to Environmental Limitations-(lack of equipment, weather restraints, etc.). 88-Not Attempted due to Medical Conditions or Safety Concerns. Weight Bearing Right Lower Extremity: Right Full Weight Bearing Left Lower Extremity: Left Non Weight Bearing Gait Training Does the Patient Walk?: Yes Distance: 150' Walk 10 feet (QC): 5 Walk 50 ft with 2 Turns(QC): 5 Walk 150 ft (QC): 4 Gait Assistive Device: Crutches Stair Training #of Steps: 4 1 Step (curb) (QC): 5 4 Steps (QC): 4 Stairs: Pattern: Hops Able to asc and desc w/ use of crutches Treatments Pt ambulates from room on crutches to stairwell and performs stairs and then back to room pt TF to chair w/ SBA/CGA. Assessment Current Status: Good Progress Pt requires verbal cues about placement of crutches during stair training and requires CGA. PT Short Term Goals Short Term Goals Time Frame: Jan 25, 2021 Roll Left & Right: 6 Sit to lyin Lying to sitting on side of be: 6 Sit to stand: 6 Chair/twq-nl-eqpjw transfer: 6 Toilet transfer: 6 Walk 10 feet: 6 Walk 50 feet with two turns: 6 Walk 150 feet: 6 1 step (curb): 6 4 steps: 6 PT Plan Problem List Problem List: Gait Treatment/Plan Treatment Plan: Continue Plan of Care Treatment Plan: Education, Gait, Safety Treatment Duration: Jan 25, 2021 Frequency: 2 times per week Estimated Hrs Per Day: .25 hour per day Patient and/or Family Agrees t: Yes Safety Risks/Education Patient Education: Steps Teaching Recipient: Patient, Family Teaching Methods: Discussion Response to Teaching: Return Demonstration Time/GCodes Time In: 846 Time Out: 856 Total Billed Treatment Time: 10 Total Billed Treatment 1 visit, FA (10min) NANCY ZHAO PTA Jan 25, 2021 11:30
== END 2021-01-25 09:32 | disposition home or self-care (01) ==
LOC: EDUNIT# 16:16 → ER 16:17 → 4TH 18:44
PROVIDERS: ADMIT Orthopaedic Surgery; ATTEND Orthopaedic Surgery
DX: S82.842A Displaced bimalleolar fracture of left lower leg, initial encounter for closed fracture (principal); S93.432A Sprain of tibiofibular ligament of left ankle, initial encounter; I10 Essential (primary) hypertension; K21.9 Gastro-esophageal reflux disease without esophagitis; Z79.899 Other long term (current) drug therapy; Z79.891 Long term (current) use of opiate analgesic
CPT/HCPCS: 27814; 27829; 29515; 71046; 73600; 76000; 80048; 85025; 87081; 93005; 93041; 94664; 97162; 97530; 99285; C1713 ×4; 36415

== ENCOUNTER → 2021-01-30 | Outpatient (CLI) | payer BC ==
[~2021-01-30] MED LIST changes: +ENAL10TA16 PO
== END ==
LOC: ORTHO 10:50
PROVIDERS: ATTEND Orthopaedic Surgery
DX: Z09 Encounter for follow-up examination after completed treatment for conditions other than malignant neoplasm (principal); S82.842D Displaced bimalleolar fracture of left lower leg, subsequent encounter for closed fracture with routine healing; S93.432D Sprain of tibiofibular ligament of left ankle, subsequent encounter; X58.XXXD Exposure to other specified factors, subsequent encounter
CPT/HCPCS: 29405

== ENCOUNTER → 2021-02-08 | Outpatient (CLI) | payer BC ==
--- NOTE | 2021-02-08 11:14 | Diagnostic Imaging Report ---
INDICATION: Postop left ankle. TIME OF EXAM: 1100 a.m. Comparison is made with preop radiograph from 01/23/2021. Since prior study a lateral plate and numerous screws have been placed transfixing the distal fibular fracture. Alignment appears normal. Fracture line does remain visible however. There are 2 fully threaded syndesmotic screws. There are 2 partially threaded screws transfixing the medial malleolus. Medial malleolar fracture does remain partially visible. Overall alignment is anatomic. Ankle mortise is maintained. Talar dome is smooth. IMPRESSION: Satisfactory postoperative appearance to the left ankle fracture showing anatomic alignment. Dictated by: Dictated on workstation # [id number]
== END ==
LOC: ORTHO 10:04
PROVIDERS: ATTEND Orthopaedic Surgery
DX: S82.842D Displaced bimalleolar fracture of left lower leg, subsequent encounter for closed fracture with routine healing (principal); Z98.890 Other specified postprocedural states; W19.XXXD Unspecified fall, subsequent encounter
CPT/HCPCS: 29405; 73610

== ENCOUNTER → 2021-02-27 | Outpatient (CLI) | payer BC ==
--- NOTE | 2021-02-27 10:22 | Diagnostic Imaging Report ---
EXAMINATION: Left ankle at 10:12 AM. INDICATION: Followup fracture. TECHNIQUE: Three views were obtained. FINDINGS: As noted on the prior exam of 02/08/2021, there is an orthopedic plate and screw fixation device securing a comminuted fracture of the distal fibula. There are also two orthopedic fixation screws traversing the distal tibia and fibula and two other screws obliquely traversing the nondisplaced fracture of the medial malleolus. The orthopedic hardware appears to be in good position and the main fracture fragments are unchanged in alignment when compared to the previous study. There is no fracture or acute bony abnormality noted. The ankle mortise is not widened and the talar dome is smooth. There is generalized soft tissue edema about the ankle joint; however, the skin [place] on each side of the ankle joint seen previously have been removed. IMPRESSION: The post operative and post traumatic changes involving the left ankle joint seen previously are again evident and do not appear to have changed significantly. There is no acute abnormality identified. Dictated by: Dictated on workstation # [id number]
== END ==
LOC: ORTHO 09:40
PROVIDERS: ATTEND Orthopaedic Surgery
DX: S82.842D Displaced bimalleolar fracture of left lower leg, subsequent encounter for closed fracture with routine healing (principal); X58.XXXD Exposure to other specified factors, subsequent encounter
CPT/HCPCS: 73610

== ENCOUNTER → 2021-03-13 | Outpatient (CLI) | payer BC ==
--- NOTE | 2021-03-13 13:49 | Diagnostic Imaging Report ---
INDICATION: Left ankle fracture. TIME OF EXAM: 10:00 a.m. Correlation is made with prior radiograph from 02/27/2021. Lateral plate and screw transfix distal fibular fracture. There is some blurring of the fracture line but the fracture line remains visible. There are 2 partially threaded screws transfixing the medial malleolus. Medial malleolar fracture also shows some blurring consistent with healing. There are 2 fully threaded syndesmotic screws. Ankle alignment is normal. Ankle mortise is well maintained. There is a large plantar calcaneal spur. IMPRESSION: Healing ankle fractures when compared to examination from 2 weeks earlier. Dictated by: Dictated on workstation # [id number]
== END ==
LOC: ORTHO 09:36
PROVIDERS: ATTEND Orthopaedic Surgery
DX: S82.842D Displaced bimalleolar fracture of left lower leg, subsequent encounter for closed fracture with routine healing (principal); X58.XXXD Exposure to other specified factors, subsequent encounter
CPT/HCPCS: 73610

== ENCOUNTER 2021-03-24 08:00 | Outpatient (RCR) | payer BC | END 2021-03-27 | disposition home or self-care (01) | PROVIDERS: ATTEND Orthopaedic Surgery | DX: S82.842D Displaced bimalleolar fracture of left lower leg, subsequent encounter for closed fracture with routine healing (principal); I10 Essential (primary) hypertension; Z98.890 Other specified postprocedural states ==

== ENCOUNTER → 2021-03-27 | Outpatient (CLI) | payer BC ==
--- NOTE | 2021-03-27 09:29 | Diagnostic Imaging Report ---
INDICATION: Left ankle fracture, status post ORIF. TIME OF EXAM: 8:55 AM Correlation is made with prior radiographs from 03/13/2021. Lateral plane screw transfixes distal fibular fracture. There are partially threaded screws transfixing the medial malleolus. There are also 2 fully threaded syndesmotic screws. Hardware remains intact without fracture loosening. Overall ankle alignment appears anatomic. The obliquely oriented fracture distal fibula remains visible. Ankle mortise is maintained. Talar dome is smooth. There is a large plantar calcaneal spur. IMPRESSION: Left ankle ORIF. Hardware remains intact. Fibular fracture line does remain visible. Dictated by: Dictated on workstation # [id number]
== END ==
LOC: ORTHO 08:45
PROVIDERS: ATTEND Orthopaedic Surgery
DX: S82.842A Displaced bimalleolar fracture of left lower leg, initial encounter for closed fracture (principal); X58.XXXA Exposure to other specified factors, initial encounter
CPT/HCPCS: 73610

== ENCOUNTER → 2021-04-24 | Outpatient (RCR) | payer BC | END | disposition home or self-care (01) | PROVIDERS: ATTEND Orthopaedic Surgery | DX: S82.842D Displaced bimalleolar fracture of left lower leg, subsequent encounter for closed fracture with routine healing (principal); I10 Essential (primary) hypertension; Z98.890 Other specified postprocedural states; W20.8XXD Other cause of strike by thrown, projected or falling object, subsequent encounter ==

== ENCOUNTER 2021-04-28 08:20 | Outpatient (RCR) | payer BC | END 2021-05-25 13:10 | disposition home or self-care (01) | PROVIDERS: ATTEND Orthopaedic Surgery | DX: S82.842D Displaced bimalleolar fracture of left lower leg, subsequent encounter for closed fracture with routine healing (principal); I10 Essential (primary) hypertension; Z98.890 Other specified postprocedural states; W20.8XXD Other cause of strike by thrown, projected or falling object, subsequent encounter ==

== ENCOUNTER → 2021-05-01 | Outpatient (CLI) | payer BC ==
--- NOTE | 2021-04-10 09:59 | Diagnostic Imaging Report ---
INDICATION: Followup of open reduction and fixation of bimalleolar fracture. Comparison with 03/27/2021. FINDINGS: The fibular plate and screws remain in good position with no evidence of loosening. The tube screws do extend into the tibia. The ankle mortise shows good alignment with smooth articulating surfaces. There are 2 cannulated bone screws in the medial malleolus. There has been some callus formation developed since previous exam. IMPRESSION: Distal fibular fracture remains in good alignment with early healing. No evidence of hardware complication. Dictated by: Dictated on workstation # [id number]
--- NOTE | 2021-05-01 09:55 | Diagnostic Imaging Report ---
CLINICAL INDICATION: Patient with closed bimalleolar fracture of the left ankle. EXAM: X-ray left ankle, 3 views. COMPARISON: X-ray left ankle dated 04/10/2021. X-ray of the left ankle dated 02/27/2021. FINDINGS: Again seen open reduction internal fixation with sideplate and screws and syndesmotic screws affixing the lateral malleolus region and syndesmosis. There are 2 screws affixing the medial malleolus. There is interval progression of healing involving the medial malleolar fracture or fracture lucency nearly resolved. There are stable bony irregularity seen distal to the medial malleolus. There is progression of bony bridging/fusion of the lateral malleolus fracture. There is no hardware complication seen. Ankle mortise and syndesmotic joints unremarkable. Hypertrophic calcaneal spurs with plantar attachment is seen. 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 IMPRESSION: There are sideplate and screws affixing the medial and lateral malleolar fracture with progression of healing. There are no hardware complications. Dictated by: Dictated on workstation # [id number]
== END ==
LOC: ORTHO 09:04
PROVIDERS: ATTEND Orthopaedic Surgery
DX: S82.842A Displaced bimalleolar fracture of left lower leg, initial encounter for closed fracture (principal); X58.XXXA Exposure to other specified factors, initial encounter
CPT/HCPCS: 73610

== ENCOUNTER → 2021-05-22 | Outpatient (CLI) | payer BC ==
--- NOTE | 2021-05-22 09:50 | Diagnostic Imaging Report ---
Indication: Left foot pain. Time Of Exam: 9:23 AM 3 views of the left foot were obtained. There is a bunion deformity present. There are degenerative changes at the 1st MTP joint. No fractures are seen. Midfoot and hindfoot are unremarkable apart from a large plantar calcaneal spur. There is hardware within the ankle. Impression: Chronic changes. No acute bony abnormality is detected. Dictated by: Dictated on workstation # [id number]
== END ==
LOC: ORTHO 08:52
PROVIDERS: ATTEND Orthopaedic Surgery
DX: M77.42 Metatarsalgia, left foot (principal)
CPT/HCPCS: 73630

== ENCOUNTER 2022-01-15 12:35 | Outpatient (CLI) | payer BC | END 2022-01-15 12:55 | LOC: SLEEP 12:35 | PROVIDERS: ATTEND Internal Medicine Cardiovascular Disease | DX: G47.33 Obstructive sleep apnea (adult) (pediatric) (principal); G47.36 Sleep related hypoventilation in conditions classified elsewhere; I49.9 Cardiac arrhythmia, unspecified; I10 Essential (primary) hypertension; G47.10 Hypersomnia, unspecified; I27.20 Pulmonary hypertension, unspecified; Z86.73 Personal history of transient ischemic attack (TIA), and cerebral infarction without residual deficits | CPT/HCPCS: G0399 ==

== ENCOUNTER → 2022-01-31 | Outpatient (CLI) | payer BC | LOC: CARD 15:00 | PROVIDERS: ATTEND Internal Medicine Cardiovascular Disease | DX: I35.8 Other nonrheumatic aortic valve disorders (principal); I51.7 Cardiomegaly; I27.20 Pulmonary hypertension, unspecified | CPT/HCPCS: 93306 ==